=== PATIENT | female | born 1970 | race Caucasian/White ===

== ENCOUNTER 2017-02-14 20:57 | Emergency (ER) | payer OTHER ==
[~2017-02-14 20:57] MED LIST: ALBUTEROL17 GM INH; ALPRAZOLAM PO; ATIVAN PO; AUGMENTIN PO; CIPRO PO; CRESTOR PO; DESYREL150 M1 PO; FLAGYL PO; FLAGYL250 M1 PO; FLEXERIL10 MG PO; HYDROXYZINE HCL50 MG PO; LITHIUM PO; LORTAB 10-5001 EACH PO; LORTAB 2.5/5001 TAB PO; LORTAB 5/500 TA1 TA1 PO; NEURONTIN PO; ORUDIS75 M1 PO; PRAZOSIN HCL2 MG PO; PREDNISONE PO; PREMARIN PO; TRAZODONE PO; VOLTAREN50 MG PO; XANAX0.5 MG PO
[2017-02-14] MEDS ORDERED: DELTASONE20 MG PO (21:32)
[2017-02-14] MEDS ORDERED: TRIAMCINOLONE A15 G3 EXT (21:33)
== END 2017-02-14 21:58 | disposition home or self-care (01) ==
LOC: SED 20:57
DX: T14.8 Other injury of unspecified body region (principal); J45.909 Unspecified asthma, uncomplicated; Z90.710 Acquired absence of both cervix and uterus; F41.9 Anxiety disorder, unspecified; F17.200 Nicotine dependence, unspecified, uncomplicated; W57.XXXA Bitten or stung by nonvenomous insect and other nonvenomous arthropods, initial encounter
CPT/HCPCS: 99281